=== PATIENT | male | born 1945 | race Caucasian/White ===

== ENCOUNTER 2022-12-07 05:38 | Day surgery (SDC) | payer MEDICARE, OTHER ==
[~2022-12-07] VITALS: Ht 180.3 cm; Wt 110.0 kg
[2022-12-07] MEDS ORDERED: LIDOcaine 1% 30ml preserv. free vial SQ STA (06:16)
[2022-12-07] MEDS ORDERED: HYDR-4070 PO (06:28)
[2022-12-07] MEDS ORDERED: FURO40TA4 PO (06:28)
[2022-12-07] MEDS ORDERED: FURO20TA4 PO (06:28)
[2022-12-07] MEDS ORDERED: PANT40TA54 PO (06:28)
[2022-12-07] MEDS ORDERED: ATOR-2 PO (06:28)
[2022-12-07] MEDS ORDERED: POTA20TA34 PO (06:28)
[2022-12-07] MEDS ORDERED: SERT-433 PO (06:28)
[2022-12-07] MEDS ORDERED: PROC10TA97 PO (06:28)
[2022-12-07] MEDS ORDERED: INSU100V30 SQ (06:29)
[2022-12-07] MEDS ORDERED: albumin 25% 100mL bottle x 1 IV PRN (06:30)
[2022-12-07 06:33] VITALS: BP 188/99; PULSE 81; RESP 14; TEMP 98.4; O2SAT 94
[2022-12-07] MEDS ORDERED: acetaminophen 325mg tablet PO PRN (09:40)
[2022-12-07 09:48] VITALS: BP 141/94; PULSE 99; RESP 16; O2SAT 99
[2022-12-07 10:04] VITALS: BP 159/75; PULSE 98; RESP 16; O2SAT 99
[2022-12-07 10:20] VITALS: BP 128/75; PULSE 96; RESP 16; O2SAT 99
[2022-12-07 10:35] VITALS: BP 129/78; PULSE 96; RESP 16; O2SAT 99
== END 2022-12-07 10:40 | disposition home or self-care (01) ==
LOC: SSTAY O 05:38
PROVIDERS: ATTEND Radiology Diagnostic Radiology
DX: C15.9 Malignant neoplasm of esophagus, unspecified (principal); J91.0 Malignant pleural effusion; I10 Essential (primary) hypertension; D70.9 Neutropenia, unspecified; D50.9 Iron deficiency anemia, unspecified; C78.7 Secondary malignant neoplasm of liver and intrahepatic bile duct; Z79.899 Other long term (current) drug therapy
CPT/HCPCS: 32555; 71045; C1729; J3490; 88108; 88305; 88341; 88342

== ENCOUNTER 2023-02-16 06:39 | Day surgery (SDC) | payer MEDICARE, OTHER ==
[~2023-02-16] VITALS: Ht 180.3 cm; Wt 94.8 kg
[2023-02-16] VITALS (7 sets, daily range): BP systolic 117–153; BP diastolic 51–85; PULSE 86–93; RESP 15–21; O2SAT 95–97
[~2023-02-16 06:39] MED LIST: ATOR-2 PO; FURO20TA4 PO; HYDR-4070 PO; INSU100V30 SQ; PANT40TA54 PO; POTA20TA34 PO; PROC10TA97 PO; SERT-433 PO
[2023-02-16] MEDS ORDERED: NITR0.4T51 SL (07:38)
[2023-02-16] MEDS ORDERED: FLO0.4C PO (07:38)
[2023-02-16] MEDS ORDERED: HYDR-4069 PO (07:38)
[2023-02-16] MEDS ORDERED: ASPI81TA52 PO (07:38)
[2023-02-16] MEDS ORDERED: AMLO5TAB16 PO (07:38)
[2023-02-16] MEDS ORDERED: ACET-1008 PO (07:38)
[2023-02-16] MEDS ORDERED: BISA10SU60 RC (07:38)
[2023-02-16] MEDS ORDERED: SULF-14 PO (07:38)
[2023-02-16] MEDS ORDERED: BRIM5DRO6 LEFTEYE (07:38)
[2023-02-16] MEDS ORDERED: POTA8CAP20 PO (07:38)
[2023-02-16] MEDS ORDERED: SERT-153 PO (07:38)
[2023-02-16] MEDS ORDERED: CARV-49 PO (07:38)
[2023-02-16] MEDS ORDERED: BUME2TAB7 PO (07:38)
[2023-02-16] MEDS ORDERED: CYAN-104 PO (07:38)
== END 2023-02-16 10:30 ==
LOC: SSTAY O 06:39
PROVIDERS: ATTEND Radiology Vascular & Interventional Radiology
DX: C15.9 Malignant neoplasm of esophagus, unspecified (principal); J91.8 Pleural effusion in other conditions classified elsewhere; D50.9 Iron deficiency anemia, unspecified; Z98.890 Other specified postprocedural states; Z79.899 Other long term (current) drug therapy
CPT/HCPCS: 32555; C1729

== ENCOUNTER 2023-03-12 09:07 | Day surgery (SDC) | payer MEDICARE, OTHER ==
[2023-03-12] VITALS (9 sets, daily range): BP systolic 102–143; BP diastolic 53–88; PULSE 63–91; RESP 16; TEMP 97.6; O2SAT 91–100
[~2023-03-12] VITALS: Ht 180.3 cm; Wt 95.8 kg
[~2023-03-12 09:07] MED LIST changes: +ACET-1008 PO; +AMLO5TAB16 PO; +ASPI81TA52 PO; +BISA10SU60 RC; +BRIM5DRO6 LEFTEYE; +BUME2TAB7 PO; +CARV-49 PO; +CYAN-104 PO; +FLO0.4C PO; +HYDR-4069 PO; -HYDR-4070 PO; +NITR0.4T51 SL; +POTA8CAP20 PO; +SERT-153 PO; +SULF-14 PO
[2023-03-12] MEDS ORDERED: acetaminophen 325mg tablet PO PRN (10:25)
== END 2023-03-12 11:35 | disposition home or self-care (01) ==
LOC: SSTAY O 09:07
PROVIDERS: ATTEND Radiology Vascular & Interventional Radiology
DX: C15.9 Malignant neoplasm of esophagus, unspecified (principal); J91.0 Malignant pleural effusion; D50.9 Iron deficiency anemia, unspecified; D70.9 Neutropenia, unspecified; C78.7 Secondary malignant neoplasm of liver and intrahepatic bile duct; I10 Essential (primary) hypertension; Z79.899 Other long term (current) drug therapy
CPT/HCPCS: 32555; C1729; A4615; A6449